=== PATIENT | male | born 1950 | race American Indian/Alaskan Native ===

== ENCOUNTER 2017-09-06 14:31 | Emergency (ER) | payer OTHER, MEDICARE ==
[2017-09-06] MEDS ORDERED: BOOSTRIX IM ONE (19:32)
[2017-09-06] MEDS ORDERED: LOPRESSOR PO ONE (19:32)
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
[2017-09-06] MEDS ORDERED: APRESOLINE PO ONE (20:33)
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
[2017-09-06 21:23] VITALS: BP 160/96
== END 2017-09-06 21:21 | disposition home or self-care (01) ==
LOC: ED 14:31
DX: S50.812A Abrasion of left forearm, initial encounter (principal); I10 Essential (primary) hypertension; I25.2 Old myocardial infarction; V49.49XA Driver injured in collision with other motor vehicles in traffic accident, initial encounter; X58.XXXA Exposure to other specified factors, initial encounter; Y93.89 Activity, other specified; Y92.89 Other specified places as the place of occurrence of the external cause; Y99.8 Other external cause status
CPT/HCPCS: 70450; 72125; 90471; 90715